=== PATIENT | female | born 1945 | race Caucasian/White ===

== ENCOUNTER 2022-04-10 10:11 | Inpatient (IN) | payer OTHER, BC ==
[2022-04-10] MEDS ORDERED: SODIUM CHLORIDE IV ONE (10:50)
[2022-04-10] MEDS ORDERED: PIPERACILLIN/TAZOB 4.5 GM 4.5 GM in DEXTROSE 5%-WATER 100 ML IVPB ONE (10:51)
[2022-04-10] MEDS ORDERED: SODIUM CHLORIDE 0.9% 500 ML INFUS.BAG IV ONE (10:51)
[2022-04-10] MEDS ORDERED: VANCOMYCIN 1 GM in D5W (PRE-DOCKED) 1,000 MG/250 ML IVPB ONE (10:54)
[2022-04-10] MEDS ORDERED: VANCOMYCIN 1 GRAM (PRE-DOCKED) 1,000 MG/250 ML BAG IVPB ONE (10:58)
[2022-04-10] MEDS ORDERED: PIPERACILLIN/TAZOB 4.5 GM 4.5 GM/100 ML BAG IVPB ONE (10:58)
[2022-04-10 12:05] LABS: BASO % 0.3 % (0-2.0); EOS % 0.5 % (0-4.5); HEMATOCRIT 31.1 % (32.4-45.2); LYMPH % 7.2 % (8-40); MCH 27.9 pg (25.7-33.7); MEAN CELL VOLUME 87.3 fl (80-96); MEAN PLT VOLUME 7.8 fl (7.5-11.1); MONO % 4.5 % (3.8-10.2); NEUT % 87.5 % (42.8-82.8); PLATELET COUNT 760 10^3/uL (134-434); RBC 3.57 M/mm3 (3.60-5.2); RDW 14.7 % (11.6-15.6); VENOUS BASE EXCESS 4.2 mmol/L (-2-2); VENOUS O2 SATURATION 29.2 % (70-80); VENOUS PCO2 49.8 mmHg (38-52); VENOUS PH 7.396 (7.310-7.410); WHITE BLOOD COUNT 19.5 K/mm3 (4.0-10.0)
[2022-04-10 12:12] LABS: INR 1.08 (0.83-1.09); PROTHROMBIN TIME (PATIENT) 12.4 SEC (9.7-13.0)
[2022-04-10 12:15] LABS: ACTIVATED PTT 30.4 SECONDS (25.2-36.5)
[2022-04-10 12:26] LABS: EPI CELLS 13 /uL (0-25.1); HYALINE CASTS 1 /uL (0-3.1); PH,URINE 7.5 (5.0-8.0); URINE APPEARANCE CLOUDY; URINE BACTERIA 14 /uL (0-1359); URINE BILIRUBIN NEGATIVE (NEGATIVE); URINE COLOR YELLOW; URINE GLUCOSE (UA) NEGATIVE (NEGATIVE); URINE KETONE NEGATIVE (NEGATIVE); URINE LEUK ESTERASE NEGATIVE (NEGATIVE); URINE NITRITE NEGATIVE (NEGATIVE); URINE PROTEIN 1+ (NEGATIVE); URINE RBC 10 /uL (0-23.9); URINE UROBILINOGEN 0.2 mg/dL (0.2-1.0); URINE WBC 4 /uL (0-25.8)
[2022-04-10 12:32] LABS: CALCIUM 8.9 mg/dL (8.5-10.1)
[2022-04-10 12:33] LABS: ALBUMIN 2.2 g/dl (3.4-5.0); BLOOD UREA NITROGEN 24.7 mg/dL (7-18)
[2022-04-10 12:36] LABS: CREATININE 0.8 mg/dL (0.55-1.3)
[2022-04-10 12:37] LABS: BILIRUBIN,TOTAL 0.3 mg/dL (0.2-1); TOT PROT 6.1 g/dl (6.4-8.2)
[2022-04-10] MEDS ORDERED: ACETAMINOPHEN 325 MG TABLET (FP) PO PRN (18:57)
[2022-04-10] MEDS ORDERED: PIPERACILLIN/TAZOB 3.375 GM 3.375 GM in DEXTROSE 5%-WATER - 50 ML IVPB SCH (19:00)
[2022-04-10] MEDS ORDERED: ACETAMINOPHEN 650 MG/20.3 ML ORAL SOLUTION (CUPS) PEG PRN (19:07)
[2022-04-10] MEDS ORDERED: PIPERACILLIN/TAZOB 3.375 GM 3.375 GM/50 ML BAG IVPB ONE (20:46)
[2022-04-10] MEDS: PIPERACILLIN/TAZOB 3.375 GM 3.375 GM in DEXTROSE 5%-WATER - 50 ML IVPB SCH (21:11)
[2022-04-10] MEDS: DEXTROSE 5%-0.45% SALINE 1,000 ML IV SCH (21:59)
[2022-04-10] MEDS ORDERED: PATIENT'S OWN MEDICATION (NON-FORMULARY) (Bupropion Hcl [Bupropion Hcl Sr] 150 MG Tab.Sr.1 PEG SCH (22:00)
[2022-04-10] MEDS ORDERED: HEPARIN NA (PORCINE) 5,000 UNITS/ML 1ML VIAL ONE (22:47)
[2022-04-10] MEDS ORDERED: ATORVASTATIN CA 20 MG TABLET (FP) ONE (22:47)
[2022-04-10] MEDS ORDERED: FAMOTIDINE 20 MG/50 ML IVPB 20 MG/50 ML MG IVPB ONE (22:47)
[2022-04-10] MEDS: HEPARIN NA (PORCINE) 5,000 UNITS/ML 1ML VIAL SQ SCH (22:54)
[2022-04-10] MEDS: FAMOTIDINE 20 MG/50 ML IVPB 20 MG/50 ML MG IVPB SCH (22:54)
[2022-04-10] MEDS: ATORVASTATIN CA 20 MG TABLET (FP) PEG SCH (23:05)
[2022-04-11] MEDS ORDERED: PIPERACILLIN/TAZOB 3.375 GM 3.375 GM/50 ML BAG IVPB ONE ×3 (05:17→20:36)
[2022-04-11] MEDS: PIPERACILLIN/TAZOB 3.375 GM 3.375 GM in DEXTROSE 5%-WATER - 50 ML IVPB SCH ×3 (05:26→20:52)
[2022-04-11] MEDS ORDERED: HEPARIN NA (PORCINE) 5,000 UNITS/ML 1ML VIAL ONE (08:30)
[2022-04-11] MEDS ORDERED: FAMOTIDINE 10 MG/ML VIAL IVPB ONE (08:31)
[2022-04-11 08:36] LABS: HEMATOCRIT 27.4 % (32.4-45.2); HEMOGLOBIN 9.3 GM/dL (10.7-15.3); MCH 29.5 pg (25.7-33.7); MCHC 33.9 g/dl (32.0-36.0); MEAN CELL VOLUME 86.9 fl (80-96); RBC 3.15 M/mm3 (3.60-5.2); WHITE BLOOD COUNT 8.1 K/mm3 (4.0-10.0)
[2022-04-11 08:37] LABS: BASO % 0.6 % (0-2.0); EOS % 1.7 % (0-4.5); LYMPH % 12.3 % (8-40); MEAN PLT VOLUME 7.2 fl (7.5-11.1); MONO % 8.1 % (3.8-10.2); NEUT % 77.3 % (42.8-82.8); PLATELET COUNT 563 10^3/uL (134-434); RDW 14.6 % (11.6-15.6)
[2022-04-11] MEDS: HEPARIN NA (PORCINE) 5,000 UNITS/ML 1ML VIAL SQ SCH ×2 (09:05→22:35)
[2022-04-11 09:08] LABS: BLOOD UREA NITROGEN 20.8 mg/dL (7-18)
[2022-04-11 09:09] LABS: CALCIUM 8.3 mg/dL (8.5-10.1); MAGNESIUM 2.2 mg/dL (1.8-2.4)
[2022-04-11] MEDS: FAMOTIDINE 20 MG/50 ML IVPB 20 MG/50 ML MG IVPB SCH ×2 (09:10→22:35)
[2022-04-11 09:12] LABS: BILIRUBIN,TOTAL 0.4 mg/dL (0.2-1)
[2022-04-11 09:13] LABS: TOT PROT 5.3 g/dl (6.4-8.2)
[2022-04-11] MEDS ORDERED: ALBUTEROL SO4 2.5/IPRATROPIUM 0.5 INH SOL 3 ML VIAL.NEB. NEB ONE (14:52)
[2022-04-11] MEDS: ALBUTEROL SO4 2.5/IPRATROPIUM 0.5 INH SOL 3 ML VIAL.NEB. NEB SCH (14:52)
[2022-04-11] MEDS: ATORVASTATIN CA 20 MG TABLET (FP) PEG SCH ×2 (22:35→22:56)
[2022-04-11] MEDS: DEXTROSE 5%-0.45% SALINE 1,000 ML IV SCH (22:40)
[2022-04-12] MEDS ORDERED: PIPERACILLIN/TAZOBACTAM 3.375 GM VIAL IVPB ONE ×3 (01:11→16:36)
[2022-04-12] MEDS ORDERED: DEXTROSE 5%-WATER - 50 ML IVPB ONE ×3 (01:11→16:37)
[2022-04-12] MEDS: PIPERACILLIN/TAZOB 3.375 GM 3.375 GM in DEXTROSE 5%-WATER - 50 ML IVPB SCH ×3 (01:28→17:28)
[2022-04-12] MEDS: ALBUTEROL SO4 2.5/IPRATROPIUM 0.5 INH SOL 3 ML VIAL.NEB. NEB SCH ×4 (02:34→20:29)
[2022-04-12] MEDS: FAMOTIDINE 20 MG/50 ML IVPB 20 MG/50 ML MG IVPB SCH ×2 (10:55→21:47)
[2022-04-12] MEDS: HEPARIN NA (PORCINE) 5,000 UNITS/ML 1ML VIAL SQ SCH ×2 (10:56→21:46)
[2022-04-12] MEDS: DEXTROSE 5%-0.45% SALINE 1,000 ML IV SCH (10:58)
[2022-04-12] MEDS: POLYETHYLENE GLYCOL 3350 119 GM BTL PEG SCH ×2 (14:34→21:47)
[2022-04-12] MEDS: ATORVASTATIN CA 20 MG TABLET (FP) PEG SCH (21:46)
[2022-04-13] MEDS ORDERED: PIPERACILLIN/TAZOBACTAM 3.375 GM VIAL IVPB ONE ×3 (01:08→17:06)
[2022-04-13] MEDS ORDERED: DEXTROSE 5%-WATER - 50 ML IVPB ONE ×3 (01:08→17:06)
[2022-04-13] MEDS: PIPERACILLIN/TAZOB 3.375 GM 3.375 GM in DEXTROSE 5%-WATER - 50 ML IVPB SCH ×3 (01:11→17:32)
[2022-04-13] MEDS: DEXTROSE 5%-0.45% SALINE 1,000 ML IV SCH (06:24)
[2022-04-13] MEDS: POLYETHYLENE GLYCOL 3350 119 GM BTL PEG SCH ×2 (06:25→14:13)
[2022-04-13] MEDS: ALBUTEROL SO4 2.5/IPRATROPIUM 0.5 INH SOL 3 ML VIAL.NEB. NEB SCH ×3 (07:55→20:26)
[2022-04-13] MEDS: FAMOTIDINE 20 MG/50 ML IVPB 20 MG/50 ML MG IVPB SCH ×2 (10:11→21:39)
[2022-04-13] MEDS: HEPARIN NA (PORCINE) 5,000 UNITS/ML 1ML VIAL SQ SCH ×2 (10:12→21:38)
[2022-04-13 10:38] LABS: BASO % 0.4 % (0-2.0); EOS % 1.2 % (0-4.5); HEMATOCRIT 26.6 % (32.4-45.2); HEMOGLOBIN 8.9 GM/dL (10.7-15.3); LYMPH % 10.2 % (8-40); MCH 28.6 pg (25.7-33.7); MCHC 33.6 g/dl (32.0-36.0); MEAN CELL VOLUME 85.1 fl (80-96); MEAN PLT VOLUME 7.2 fl (7.5-11.1); MONO % 9.2 % (3.8-10.2); PLATELET COUNT 523 10^3/uL (134-434); RBC 3.12 M/mm3 (3.60-5.2); RDW 14.4 % (11.6-15.6); WHITE BLOOD COUNT 8.6 K/mm3 (4.0-10.0)
[2022-04-13 11:03] LABS: CALCIUM 8.2 mg/dL (8.5-10.1)
[2022-04-13 11:04] LABS: ALBUMIN 1.8 g/dl (3.4-5.0); BLOOD UREA NITROGEN 13.8 mg/dL (7-18)
[2022-04-13 11:07] LABS: CREATININE 0.9 mg/dL (0.55-1.3)
[2022-04-13 11:08] LABS: BILIRUBIN,TOTAL 0.2 mg/dL (0.2-1)
[2022-04-13] MEDS: KCL 10 MEQ IVPB 10 MEQ/100 ML INFUS.BAG IVPB SCH ×2 (15:17→16:15)
[2022-04-13] MEDS: ATORVASTATIN CA 20 MG TABLET (FP) PEG SCH (21:38)
[2022-04-13] MEDS: POLYETHYLENE GLYCOL (HEALTHYLAX) 3350 17 GM PACKET PEG SCH (21:38)
[2022-04-14] VITALS: BMI 21.2
[2022-04-14] MEDS ORDERED: DEXTROSE 5%-WATER - 50 ML IVPB ONE ×3 (00:42→16:52)
[2022-04-14] MEDS ORDERED: PIPERACILLIN/TAZOBACTAM 3.375 GM VIAL IVPB ONE ×3 (00:42→16:52)
[2022-04-14] MEDS: PIPERACILLIN/TAZOB 3.375 GM 3.375 GM in DEXTROSE 5%-WATER - 50 ML IVPB SCH ×3 (01:01→17:43)
[2022-04-14] MEDS: POLYETHYLENE GLYCOL (HEALTHYLAX) 3350 17 GM PACKET PEG SCH ×3 (06:00→23:10)
[2022-04-14] MEDS: ALBUTEROL SO4 2.5/IPRATROPIUM 0.5 INH SOL 3 ML VIAL.NEB. NEB SCH ×3 (07:38→20:10)
[2022-04-14] MEDS: HEPARIN NA (PORCINE) 5,000 UNITS/ML 1ML VIAL SQ SCH ×2 (10:24→23:10)
[2022-04-14] MEDS: FAMOTIDINE 20 MG/50 ML IVPB 20 MG/50 ML MG IVPB SCH ×2 (10:26→23:11)
[2022-04-14] MEDS ORDERED: ACETAMINOPHEN 650 MG/20.3 ML ORAL SOLUTION (CUPS) PEG PRN (19:45)
[2022-04-14] MEDS ORDERED: ATORVASTATIN CA 20 MG TABLET (FP) PEG SCH (22:00)
[2022-04-15] MEDS ORDERED: DEXTROSE 5%-WATER - 50 ML IVPB ONE ×3 (01:28→17:08)
[2022-04-15] MEDS ORDERED: PIPERACILLIN/TAZOBACTAM 3.375 GM VIAL IVPB ONE ×3 (01:28→17:08)
[2022-04-15] MEDS: PIPERACILLIN/TAZOB 3.375 GM 3.375 GM in DEXTROSE 5%-WATER - 50 ML IVPB SCH ×3 (01:52→17:29)
[2022-04-15] MEDS: POLYETHYLENE GLYCOL (HEALTHYLAX) 3350 17 GM PACKET PEG SCH ×2 (07:51→15:26)
[2022-04-15] MEDS: ALBUTEROL SO4 2.5/IPRATROPIUM 0.5 INH SOL 3 ML VIAL.NEB. NEB SCH ×2 (08:00→14:50)
[2022-04-15] MEDS: FAMOTIDINE 20 MG/50 ML IVPB 20 MG/50 ML MG IVPB SCH (09:31)
[2022-04-15] MEDS: HEPARIN NA (PORCINE) 5,000 UNITS/ML 1ML VIAL SQ SCH (09:32)
[2022-04-15 18:45] VITALS: BP 139/73; PULSE 95; TEMP 98.1
== END 2022-04-15 19:50 | DRG 177 ==
LOC: JER 10:11 → JERBED 12:54 → J4W 04-11 22:02 → J5S 04-14 21:18
PROVIDERS: ADMIT Family Medicine; ATTEND Family Medicine
PROC: 3E0G76Z Introduction of Nutritional Substance into Upper GI, Via Natural or Artificial Opening (ICD-10-PCS; principal; 2022-04-10)
PROC: 0D20XUZ Change Feeding Device in Upper Intestinal Tract, External Approach (ICD-10-PCS; 2022-04-15)
DX: J69.0 Pneumonitis due to inhalation of food and vomit (principal); G92.8 Other toxic encephalopathy; C81.90 Hodgkin lymphoma, unspecified, unspecified site; C41.1 Malignant neoplasm of mandible; J96.11 Chronic respiratory failure with hypoxia; K94.23 Gastrostomy malfunction; F03.90 Unspecified dementia, unspecified severity, without behavioral disturbance, psychotic disturbance, mood disturbance, and anxiety; J44.9 Chronic obstructive pulmonary disease, unspecified; R13.10 Dysphagia, unspecified; R62.7 Adult failure to thrive; K21.9 Gastro-esophageal reflux disease without esophagitis; K59.00 Constipation, unspecified; Z99.81 Dependence on supplemental oxygen; D72.829 Elevated white blood cell count, unspecified
CPT/HCPCS: 0241U-QW; 36415; 71045-TC-FY; 74018-TC-FY; 74176-TC; 80053; 81003; 82550; 82728; 82803; 83540; 83550; 83605; 83690; 83735; 84443; 84484; 85025; 85610; 85730; 86850; 86900; 86901; 87040; 87086; 93005; 93010; 94640; 99285-25; C9803-CS; J1644; U0003; U0005